=== PATIENT | female | born 2000 | race African-American/Black ===

== ENCOUNTER 2024-05-16 13:21 | Emergency (ER) | payer MEDICAID, SELFPAY ==
--- NOTE | ~2024-05-16 | XR_ITS ---
EXAMINATION: XR FINGER, RIGHT CLINICAL INFORMATION: right index lac COMPARISON: None available. TECHNIQUE: Oblique and lateral views second digit of the right PA view right hand. FINDINGS: No acute cortical disruption or gross malalignment. Edema pattern subcutaneous emphysema, second digit. No metallic or radiopaque foreign body. XR/XR finger RT min 2V IMPRESSION: No acute fracture or dislocation. No gross foreign body. Electronically signed by: Tulio Carranza MD 05/16/2024 03:54 PM EST
[2024-05-16 13:26] VITALS: BP 122/77; PULSE 81; O2SAT 100
--- NOTE | 2024-05-16 14:17 | ED.WOUNDLAC ---
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 Tetanus unknown. Denies numbness, tingling, injury to other area, anticoagulation use. Related Data Previous Rx's ?Medication ?Instructions ?Recorded cephalexin 500 mg capsule 500 mg PO QID 7 days #28 caps 05/16/24 hydrocodone 5 mg-acetaminophen 325 1 tab PO Q8H PRN pain, severe 3 05/16/24 mg tablet days #5 tabs Allergies Allergy/AdvReac Type Severity Reaction Status Date / Time No Known Allergies Allergy Verified 05/16/24 14:28 Review of Systems Review of Systems: Yes all other systems are reviewed and are negative Constitutional: Constitutional: Reports as per HPI [facility] Past Medical History Attestation statement: The following information was validated with the patient. Source: old records reviewed Social History Social History Advance Directives: No Advance Directives Information Provided: Yes Physical Exam Vital Signs: Vital Signs: Last Vital Signs Temp 98.5 F 05/16/24 14:23 Pulse 76 05/16/24 14:23 Resp 18 05/16/24 14:23 BP 120/82 05/16/24 14:23 Pulse Ox 98 05/16/24 14:23 O2 Del Method Room Air 05/16/24 14:23 BMI result Body Mass Index 25.7 Const: General: cooperative, healthy appearing and no acute distress Orientation/consciousness: patient oriented x3 Limitations: no limitations HEENT: Head: Yes normal to inspection and Yes atraumatic Ears: hearing grossly normal bilaterally General nose exam: Normal external nose present Face and sinus: Yes normal facial exam Eyes: General: appearance normal, both eyes and all related structures EOM: EOMs intact bilaterally Neck: Neck: Yes normal visual inspection and Yes no meningeal signs Resp: Effort & Inspection: normal respiratory effort and no respiratory distress Cardio: Rate: regular rate Skin: Other: Please refer to images above. Deep 3 cm laceration noted to proximal palmar aspect of right 2nd digit. Active bleeding. No visible tendon. Patient unable to flex finger Rashes: no rashes Neuro: General: patient oriented x3, tone normal and no meningeal signs Cranial nerves: Yes CN's II-XII intact bilaterally Gait exam (Neuro): Normal gait present Extrem: General: Yes normal to inspection Course Course Course Narrative: This is a Rapid Medical Examination (RME) performed by Josef Eric PA-C in triage. Full HPI, ROS, assessment and treatment plan per primary provider in the Main ED. 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 Bleeding controlled by EMS with a bulky bandage. on exam patient has a large, deep lac to the base of the right index finger on the palmar side w/ active bleeding. no numbness or tingling in the finger, just pain. unable to flex finger at all. Plan: XR finger, TDAP, lac repair Case discussed with orthopedic ONELIA Michaud > recommended wound closure, initiation of antibiotics, patient can be evaluated in their office tomorrow for potential tendon repair on with Dr. Ruggiero. This was discussed with patient with [facility] helper electrical. Results discussed with patient including worrisome signs and symptoms and strict return precautions, and when to return to the emergency department. They verbalized understanding and feel safe for discharge at this time. Medications Administered Discontinued Medications Generic Name Dose Route Start Last Admin Trade Name Freq PRN Reason Stop Dose Admin Diphtheria/Tetanus/Acell Pertussis 0.5 ml 05/16/24 14:24 05/16/24 16:12 Diphth,Pertus(Acell),Tet Adult 0.5 Ml Syringe IM 05/16/24 14:25 0.5 ml .ONCE ONE Administration Lidocaine HCl 5 ml 05/16/24 15:56 05/16/24 16:16 Lidocaine Hcl 1 % Mpf 5 Ml Vial INFILTRATI 05/16/24 15:57 5 ml ONCE ONE Administration Medical Decision Making Medical Decision Making [facility] Narrative: 24-year-old female, Swahilli speaking presents to the ED complaining of laceration to right index finger s/p cutting meat with a knife 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 On exam vital signs stable, NAD, nontoxic appearing, physical exam as noted above. Please refer to images. Concern for deep wound laceration with tendon rupture. Patient unable to flex finger. Lower suspicion for fracture or septic joint at this time Plan: X-ray ordered in triage, wound repair, orthopedic hand consult, update tetanus Please refer to course for remaining clinical decision making, interpretation of labs/imaging results, and discussions with consultants and/or family members. 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 External Record Review External record reviewed: Inpatient record, Office record, Outpatient record, Prior outpatient labs, Prior outpatient radiology, Primary care record and Outside ED record Tests considered The following testing was considered but not selected: As above Prescription Management I considered prescription management with: Pain Medication and Antibiotic Social Determinants Patient?s care significantly limited by Social Determinants of Health including: Other Social Determinant of Health Procedures Laceration Laceration 1: Site: hand Side (If applicable): right Size (cm): 3 Description: linear Depth: involves tendon Local Anesthetic: lidocaine 1% Amount of anesthesia used (mL): 7 Pre-repair: wound explored and irrigated extensively Skin layer closed with: nylon Size (cm): 4-0 Number of sutures: 7 Technique: simple, interrupted Discharge Plan Discharge Clinical Impression: Flexor tendon laceration of finger with open wound Patient Disposition: Home, Self-Care Instructions: Finger Laceration (ED), Tendon Laceration (ED) Additional Instructions: You have a deep laceration of your finger with flexor tendon rupture YOU NEED TO FOLLOW-UP IN THE ORTHOPEDIC OFFICE TOMORROW. CALL THE OFFICE Keflex as an antibiotic please take as prescribed Dysart as an opiate pain medication, take only when pain is severe for the next 3 days. In addition take Motrin If area becomes increasingly painful, numb, is soaking through/bleeding through dressing return to the ED immediately Prescriptions: New hydrocodone-acetaminophen 5-325 mg tablet 1 tab PO Q8H PRN (Reason: pain, severe) 3 Days Qty: 5 0RF Rx Instructions: Partial Fill upon patient request. cephalexin 500 mg capsule 500 mg PO QID 7 Days Qty: 28 0RF Referrals: [facility] [place] Orthopedic Surgeons [Provider Group] - 1 day Print Language: Swmacili
[2024-05-16 14:23] VITALS: BP 120/82; PULSE 76; RESP 18; TEMP 36.9; O2SAT 98; BMI 25.7
[2024-05-16] MEDS: Diphth,Pertus(ACell),Tet Adult 0.5 ML SYRINGE IM (16:12)
[2024-05-16] MEDS: Lidocaine HCl 1 % MPF 5 ML VIAL INFILTRATI ×2 (16:16→17:33)
[2024-05-16] MEDS: cephALEXin 500 MG CAPSULE PO (17:36)
[2024-05-16 17:46] VITALS: BP 120/82; PULSE 76; RESP 18; TEMP 36.9; O2SAT 98
== END 2024-05-16 17:54 | disposition home or self-care (01) ==
PROVIDERS: Emergency Provider Emergency Medicine
DX: S66.120A Laceration of flexor muscle, fascia and tendon of right index finger at wrist and hand level, initial encounter (principal); W26.0XXA Contact with knife, initial encounter; Y93.G1 Activity, food preparation and clean up; Y92.009 Unspecified place in unspecified non-institutional (private) residence as the place of occurrence of the external cause; Y99.9 Unspecified external cause status; Z23 Encounter for immunization
CPT/HCPCS: 12042; 73140; 90471; 90715; 99282; 99284; J2003

== ENCOUNTER → 2024-05-16 14:24 | Outpatient (BNV) | payer MEDICAID, SELFPAY | PROVIDERS: Visit Provider Radiology Diagnostic Radiology | DX: S61.210A Laceration without foreign body of right index finger without damage to nail, initial encounter (principal) | CPT/HCPCS: 73140 ==

== ENCOUNTER 2024-05-17 14:33 | Outpatient (AMB) | payer MEDICAID, SELFPAY ==
[2024-05-17 14:47] VITALS: BMI 25.7
--- NOTE | 2024-05-17 14:47 | MHC.OFFVIS ---
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 Patient reports that she was cutting meat with a knife and had accidentally cut her finger. She presented to [facility] ER that same day, sutures were applied. Currently she has mild pain, states feeling a tightness from her bandage. No numbness or tingling. She has not started her antibiotics that was prescribed by ER. 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 She states that she was cutting meat with a knife when she slipped and cut her finger. She was seen in the emergency department where the laceration was irrigated and there was closure with nylon. The area was dressed and she was referred to our office for ortho eval and potential surgical planning. She was prescribed antibiotics from the emergency department however she did not go to the pharmacy to pick these up yet. [facility] Social History (Updated 05/17/24 @ 14:50 by ANJEL Nicolas) Patient Tobacco Use Status: Never used Tobacco Current occupational status: unemployed Current occupation: right hand dominant Review of Systems Const All systems reviewed & are unremarkable except as noted in HPI and below Physical Exam Vital Signs: BMI result Body Mass Index 25.7 Const General: cooperative, healthy appearing, comfortable, no acute distress, well developed and alert Orientation/consciousness: patient oriented x3 HEENT Head: Yes normal to inspection, Yes normocephalic and Yes atraumatic Eyes General: appearance normal, both eyes and all related structures Neck Neck: Yes normal visual inspection and Yes no lymphadenopathy Resp Effort & Inspection: normal respiratory effort and able to speak in complete sentences Cardio Rate: regular rate Peripheral pulses: Peripheral pulses 2+ throughout GI Inspection: Yes normal to inspection Palpation (GI): Soft to palpation Skin General skin exam: no rashes or lesions noted Neuro General: patient oriented x3 Extrem Other: Right hand is normal to inspection she does have a laceration over the proximal aspect of the right index finger along the volar aspect of the finger. Radial and ulnar digital nerve intact. Full extension with no lag. She is unable to flex at the PIP. Cap refill brisk. Psych Appearance: grossly normal Mental Status: mental status grossly normal Assessment & Plan Assessment & Plan (1) Flexor tendon laceration of finger with open wound: Code(s): S56.129A - Laceration of flexor muscle, fascia and tendon of unspecified finger at forearm level, initial encounter; S61.209A - Unspecified open wound of unspecified finger without damage to nail, initial encounter Category: Medical Plan: I reviewed the case with Dr. Ruggiero and this is something that would require surgical intervention to repair. I explained the extent of the injury and options to the patient which includes repair of the flexor tendon. I did explain to her that this takes anywhere from 6-12 weeks to fully recover from as there needs to be a period of immobilization and then some potential physical therapy. I discussed with her the risks, benefits and alternatives to the procedure. Risks including, but not limited to infection, re-rupture of the tendon, stiffness. She does understand all this and would like to proceed with right index finger flexor tendon repair with possible microscopic digital nerve repair Dr. Ruggiero. She will be booked accordingly Medications: New hydrocodone-acetaminophen 5-325 mg Partial Fill upon patient request. 1 tab PO Q6H PRN 28 tabs 0RF pain 7 days Coding Level of Care Code New Pt Level 4 (47514) Complex EM visit Add On G2211 Diagnoses Flexor tendon laceration of finger with open wound S56.129A; S61.209A
== END 2024-05-17 15:33 | disposition home or self-care (01) ==
PROVIDERS: Visit Provider Physician Assistant
DX: S56.129A Laceration of flexor muscle, fascia and tendon of unspecified finger at forearm level, initial encounter (principal); S61.209A Unspecified open wound of unspecified finger without damage to nail, initial encounter
CPT/HCPCS: 99204

== ENCOUNTER → 2024-05-17 14:33 | Outpatient (BNVA) | payer MEDICAID, SELFPAY | PROVIDERS: Visit Provider Physician Assistant | DX: S56.121A Laceration of flexor muscle, fascia and tendon of right index finger at forearm level, initial encounter (principal); S61.210A Laceration without foreign body of right index finger without damage to nail, initial encounter; W26.0XXA Contact with knife, initial encounter; Y93.G3 Activity, cooking and baking; Y92.9 Unspecified place or not applicable; Y99.9 Unspecified external cause status | CPT/HCPCS: 99212 ==

== ENCOUNTER 2024-05-18 09:12 | Day surgery (SDC) | payer MEDICAID, SELFPAY ==
[2024-05-18] VITALS (9 sets, daily range): BP systolic 95–120; BP diastolic 55–78; PULSE 83–117; RESP 15–18; TEMP 36.1–37.1; O2SAT 96–100; BMI 27.6
[2024-05-18 09:35] LABS: UPreg QC Valid YES
[2024-05-18 09:37] LABS: Urine Pregnancy NEGATIVE (NEGATIVE)
--- NOTE | 2024-05-18 09:46 | P.OP_ITS ---
Operative Note Operative Note Date of Service: 05/18/24 Narrative: Operative Note Narrative: Preop diagnosis: 1. Right index finger zone 2 flexor digitorum superficialis laceration 2. Right index finger zone 2 flexor digitorum profundus laceration Postop diagnosis: 1. Right index finger zone 2 flexor digitorum superficialis laceration 2. Right index finger zone 2 flexor digitorum profundus laceration? 3. Right index finger radial digital nerve laceration Procedure: 1. Right index finger flexor digitorum superficialis repair, in zone 2 2. Right index finger flexor digitorum profundus repair, in zone 2 3. Right index finger radial digital nerve laceration using loupe magnification Surgeon: Corinne Ruggiero MD [employer] General Supervisor: Alfie ROUSSEAU Anesthesia: General anesthesia plus regional block Findings: Right index finger laceration of the FDP and FDS tendons within zone 2, and within the A2 olive. She also had a laceration of the radial neurovascular bundle at the same level. The ulnar neurovascular bundle appeared to be intact. Implants: None Tourniquet time: 115 minutes EBL: 5.0 ml Specimen: None Drains: None Complications: None Disposition: Brought to the recovery room in stable condition Plan: She was placed in a dorsal blocking splint and instructed not to remove it. Follow-up with our OT hand therapists for a custom dorsal blocking splint and to begin the flexor tendon protocol. Follow-up in 10-14 days for wound check and suture removal Indications: The patient is 24 years old with a laceration over the volar aspect of the right index finger proximal phalanx, and zone 2 flexor tendon lacerations. She denied having any numbness in the radial digital nerve or ulnar digital nerve distribution of the finger when seen in clinic.. . The risks and benefits of operative treatment, including but not limited to risk of damage to blood vessels, nerves, tendons, infection, recurrence, persistent pain or numbness, incomplete resolution of preoperative symptoms, or need for further surgery were discussed with the patient and they wished to proceed with surgery. Procedure: Once consent was obtained patient was brought back to the operating suite and placed in the operating table in a supine position. . Perioperative antibiotics and anesthesia was administered by the anesthesia team. A tourniquet was applied to the proximal aspect of the right upper extremity and the limb was prepped and draped in a standard surgical fashion. The limb was elevated exsanguinated with Esmarch bandage and the tourniquet inflated to 250 mm of mercury for a total tourniquet time of 115 minutes. A Ramiro is a type incision was made over the volar aspect of the patient's right index finger, incorporating the laceration. The incision was made through the skin to the subcutaneous tissues using a 15. Blade. Careful dissection was made down to the level of the flexor tendon sheath with care being taken to protect the neurovascular structures. The laceration through the flexor tendon sheath was found through the A2 olive. She lacerated both the FDS and FDP tendons within the A2 olive and they were retracted both proximally and distally. The ulnar neurovascular bundle appeared to be intact. The laceration clearly transected the radial neurovascular bundle. A neurolysis was performed mobilizing both the proximal and distal aspect of the lacerated radial digital nerve. The wound was washed out and debrided of any nonviable tissue. The FDP and FDS tendons were brought distally to the level of the laceration at the A2 olive. I vented the distal 5 mm of the A2 olive. The distal aspect of the FDS and FDP tendons were then brought proximally. I then repaired the radial slip of the FDS tendon using some 3-0 Ethibond suture. I then repaired the ulnar slip of the FDS tendon using some 3-0 Ethibond suture. I then repaired the FDP tendon using 3-0 Ethibond in a 4 core suture technique. I was somewhat concerned that because of the bulk we might have difficult passing this through the A2 olive. I therefore performed a tenotomy of the ulnar slip of the FDS tendon. I was then able to draw the repaired tendons within the A2 olive without difficulty by applying traction at the A1 olive level. My attention was then turned to the radial digital nerve. I placed a small piece of Esmarch behind it as a background. I then repaired the radial digital nerve using loupe magnification and some 7 0 Prolene suture. At this point the tourniquet was deflated and hemostasis obtained with a brief period of local pressure and bipolar electrocautery. The wound was copiously irrigated with normal saline. The the skin edges were reapproximated with 5-0 nylon suture. The wound was infiltrated with some 0.5% plain Marcaine for postop pain control and a sterile dressing was applied. A dorsal blocking splint incorporating all 4 fingers was then applied holding the MCP and PIP joints in a flexed position. The patient appears to have tolerated the procedure well and with no complications. All digits were well vascularized conclusion of the case.
[2024-05-18] MEDS: Lactated Ringers 1,000 ML 50 ML IVCONT (10:06)
--- NOTE | 2024-05-18 11:31 | HO.ANESPROP2 ---
HPI - Anesthesia Eval Consult details Narrative: flexor tendon repair PMFSH Family History Family history of problems with anesthesia: No Surgical History History of Problems with Anesthesia: No Social History Social History Patient Tobacco Use Status: Never used Tobacco Use of substances other than those prescribed or required for medical reasons: No Are you DNR?: No Advance Directives: No Advance Directives Information Provided: Yes Recently lost weight without trying: No Current occupational status: unemployed Current occupation: right hand dominant Meds Allergies Allergy/AdvReac Type Severity Reaction Status Date / Time No Known Allergies Allergy Verified 05/17/24 14:48 Active Medications: Current Medications Lactated Ringer's (Lr) 1,000 mls @ 50 mls/hr IVCONT .Q20H FLORY Last Admin: 05/18/24 10:06 Dose: 50 mls/hr Exam Height,Weight and Vital Signs: Height 5 ft 3 in Weight 70.76 kg Last Vital Signs Temp 98.8 F 05/18/24 10:05 Pulse 83 05/18/24 10:05 Resp 15 05/18/24 10:05 BP 115/78 05/18/24 10:05 Pulse Ox 98 05/18/24 10:05 O2 Del Method Room Air 05/18/24 10:05 Pertinent Lab Results Pertinent Lab Results: Laboratory Tests 05/18/24 09:25 Urine Test NEGATIVE Airway Mallampati Class: II TM Dist: >3cm Neck ROM: Full Heart: rrr Lungs: cta Assessment and Plan Assessment Anesthesia Assessment: Anesthesia Plan Discussed Final Anesthetic Review Family History of Problems with Anesthesia: No History of Problems with Anesthesia: No NPO: Yes Final Preanesthetic Review: No Changes in Pt Med Stat, Meds/Allgs Chart Reviewed, Consent Obtained/Reviewed and Anes Risks/Benef Reviewed Patient Risk: Low Procedure Risk: Low Anesthetic Plan Anesthetic Plan: GA Disposition: Standard PACU
--- NOTE | 2024-05-18 12:21 | MHC.SHP ---
Pre-Procedural Eval Section A - 24 Hr Update-Section A only Date of Service: 05/18/24 The patient is an INPATIENT: No Changes since office visit: No Cold of Flu in the past 2 weeks, No New Medical Problems, No Changes in Medication and No Patient answered all questions The patient has been examined within 24 hours of the surgical procedure. The History & Physical has been completed within 30 days and I have reviewed it.: Yes Section B - Complete if H&P > 30 days Chief Complaint: Laceration of flexor muscle, fascia and tendon Allergies: Allergies Allergy/AdvReac Type Severity Reaction Status Date / Time No Known Allergies Allergy Verified 05/17/24 14:48 Plan I have reviewed the history and physical and performed a pertinent physical examination on my patient. No changes have occurred unless specified. Time Spent With Patient Time: Total time managing care of this patient today ____ minutes.
[2024-05-18] MEDS: fentaNYL citrate/PF 100 MCG/2 ML VIAL 25 MCG IVPUSH (15:28)
== END 2024-05-18 16:45 | disposition home or self-care (01) ==
PROVIDERS: Anesthesiology; Visit Provider Orthopaedic Surgery
PROC: (CPT 26356; principal; 2024-05-18 10:30)
DX: S56.121A Laceration of flexor muscle, fascia and tendon of right index finger at forearm level, initial encounter (principal); S61.210A Laceration without foreign body of right index finger without damage to nail, initial encounter; W26.0XXA Contact with knife, initial encounter; Y93.G1 Activity, food preparation and clean up; Y92.9 Unspecified place or not applicable; Z79.899 Other long term (current) drug therapy; Z56.0 Unemployment, unspecified
CPT/HCPCS: 26356; 64831; 81025; A4649; J0131; J0690; J1100; J2003; J2405; J2704; J3010

== ENCOUNTER → 2024-05-18 09:12 | Outpatient (BNV) | payer MEDICAID, SELFPAY | PROVIDERS: Visit Provider Orthopaedic Surgery | DX: S66.120A Laceration of flexor muscle, fascia and tendon of right index finger at wrist and hand level, initial encounter (principal) | CPT/HCPCS: 26356; 64702; 64831 ==

== ENCOUNTER 2024-05-31 09:10 | Outpatient (AMB) | payer MEDICAID, SELFPAY ==
--- NOTE | 2024-05-31 09:28 | A.OFFVIS_ITS ---
Intake Visit Reasons: PO RT IF flexor tendon repair 05/18/24 AR Intake Note: Tracy a 24 year old - hand dominant female who presents today post operatively s/p right index finger flexor tendon repair performed 05/18/[address] Ruggiero. Patient reports she does have a burning sensation in her finger that comes and goes. Pt denies numbness, tingling, finger locking Patient is currently taking tylenol and ibuprofen for pain with relief. Tourist Information Assistant Required: Yes Tourist Information Assistant Language: Swahili Tourist Information Assistant Services: Tourist Information Assistant Present Tourist Information Assistant Name: Gabriel ([id number]) Allergies No Known Allergies Allergy (Verified 05/31/24 09:28) HPI HPI PO RT IF flexor tendon repair 05/18/24 AR: Details: Tracy is a 24 year old right hand dominant Swahili speaking woman who presents S/P right index finger flexor tendon repair, DOS: 05/18/24. She cut her finger with a kitchen knife on 05/16/24, and was seen in the ED the same day. Translation service used today. She says she is doing well, she complains of an intermittent burning sensation in her finger. She says this is tolerable and managed with Tylenol. She denies any numbness or tingling. She has yet to be seen by OT hand therapy, and her first scheduled appointment is on 06/16/24. [facility] Social History Patient Tobacco Use Status: Never used Tobacco Current occupational status: unemployed Current occupation: right hand dominant Review of Systems Const All systems reviewed & are unremarkable except as noted in HPI and below Physical Exam Const General: no acute distress and alert Orientation/consciousness: patient oriented x3 Neuro General: patient oriented x3 Extrem Other: The patient was alert oriented and in no acute distress She speaks Swahili and we used a Swahili quarrying manager. She was really rather reticent during the appointment. The incision is healing well with no erythema drainage or evidence of infection. Sutures removed and Steri-Strips applied She was still in her operative dressing, as she had not yet seen OT hand therapy. The index finger was held in a slightly bent position, consistent with intact repair of the flexor tendons Sensation was intact and normal to the ulnar digital nerve distribution. At 1st she said sensation was normal to the radial digital nerve distribution but as I pressed her, she said that it was almost normal but a little sleepy Cap refill brisk. Psych Appearance: grossly normal Affect: normal affect Attitude: cooperative Assessment & Plan Assessment & Plan (1) Laceration of flexor muscle, fascia and tendon of right index finger at wrist and hand level, subsequent encounter: Code(s): S66.120D - Laceration of flexor muscle, fascia and tendon of right index finger at wrist and hand level, subsequent encounter Category: Medical Plan Assessment & Plan: 1. Right index finger flexor tendon laceration, S/P A) Flexor digitorum superficialis repair in zone 2 B) Flexor digitorum profundus repair in zone 2 2. Right index finger digital nerve laceration, S/P repair using Loupe magnification DOI: 05/16/24 DOS: 05/18/24 The patient appears to be doing well post-operatively I educated her about the post-operative course I ordered OT hand therapy to be placed in a custom dorsal blocking splint, to be worn for the next 4 weeks. She will also begin flexor tendon protocol. She was scheduled to be seen by OT on 06/16/24, but I called & spoke to OT and arranged an appointment for her for later today I explained the signs and symptoms of infection, if the patient develops any new or worsening erythema, drainage, pain, or warmth they should contact the clinic or attend the ED. I discussed activity modifications and the postop course with her at length. She does understand that she needs to stay in her dorsal blocking splint except for when she is directed otherwise by OT hand therapy. I explained the importance of not doing too much, and of the importance of also doing the exercises so that she has enough motion to allow gliding of the tendon repairs. She will follow flexor tendon protocol for ROM exercises at home, as instructed by OT hand therapy I discussed the importance of following the directions of the OT hand therapist and doing her exercises as directed. She will follow up in 4 weeks for a wound & ROM check I explained if she has any concerns she should give us a call. I also gave her my card. Scribed for Corinne Ruggiero MD by Wayne Nicole, medical technicians, on 05/31/24 at 9:55 AM, EST. Coding Level of Care Code Global (18950) Diagnoses Laceration of flexor muscle, fascia and tendon of right index finger at wrist and hand level, subsequent encounter S66.120D
== END 2024-05-31 10:31 | disposition home or self-care (01) ==
PROVIDERS: Visit Provider Orthopaedic Surgery
DX: S66.120D Laceration of flexor muscle, fascia and tendon of right index finger at wrist and hand level, subsequent encounter (principal)
CPT/HCPCS: 99024

== ENCOUNTER → 2024-05-31 09:10 | Outpatient (BNVA) | payer MEDICAID, SELFPAY | PROVIDERS: Visit Provider Orthopaedic Surgery | DX: S66.120D Laceration of flexor muscle, fascia and tendon of right index finger at wrist and hand level, subsequent encounter (principal) | CPT/HCPCS: 99212 ==

== ENCOUNTER 2024-06-23 13:26 | Outpatient (RCR) | payer MEDICAID, SELFPAY ==
--- NOTE | 2024-05-31 15:36 | MHC.OT.EP ---
[address] [phone] Occupational Therapy Plan of Care Patient Name: Tracy Snow Date of Evaluation: 05/31/24 Diagnosis: R IF zone 2 flexor tendon repair w/ digital nerve involvement (repair) Pain Location: R IF Pain Score: 5 Pain Scale Used: Numeric (0 - 10) Aggravating Factors: Alleviating Factors: Assessment: Pt is a R hand dominant female who injured her hand on 05/16 while using a knife to cut food. she reports going to the ED at [facility] and then being referred to Dr. Ruggiero to be evaluated for a zone 2 flexor tendon laceration. she had surgery on 05/18 and the digital nerve and tendon were repaired. Pt had a portion of her stitches removed 05/31, and was then referred to skilled OT therapy for fabrication of a DBS and to begin GENTLE ROM exercises. She presents today post MD visit w/ mild swelling and bandaged on the volar side of her hand/ digits due to seeing the MD just prior to todays IE. Measurements were not taken due to time constraints and contraindications of protocol PT'S INSURANCE WOULD LIKE HER TO SEE HER PC WHICH HAS NOT BEEN ESTABLISHED BEFORE ATTENDING OT; THE FRONT OFFICE STAFF IS WORKING W/ HER INSURANCE,PROVIDERS, AND THE PATIENT TO MAKE SURE PATIENT GETS THE ADEQUATE CARE NEEDED DUE TO THE NATURE OF HER INJURY Frequency and Duration: The patient will be seen 2 xs a week for 8 weeks Short Term Goals: Pt will [be compliant w/ DBS wear/care Pt will be compliant w/ her HEP Pt will increase will be able to use her R hand to hold her cell phone w/out difficulty (4 weeks post IE) Check Services Clerk Goals: Pt will be able to use her R hand to lift 8 lbs w/ out difficulty Pt will be able to make a composite fist Pt will report using her R hand to write w/out difficulty Treatment Plan: Therapeutic Exercise Therapeutic Activity Home Exercise Program Splinting Neuro Re-ed Patient Education Desensitization/Sensory Re-ed Edema Control ADL Training Ultrasound NMES Iontophoresis Paraffin Fluidotherapy MHP Cold Packs Joint Mobilization Soft Tissue Mobilization Kinesiotaping Other (see comments) Electronically Signed By: Lyly Millard OTR/L Please Sign and return to therapist. Thank you once again for your referral.
== END 2024-07-03 11:23 | disposition home or self-care (01) ==
LOC: HO.OT 13:26
PROVIDERS: PCP Nurse Practitioner Family; Visit Provider Orthopaedic Surgery
DX: S66.120A Laceration of flexor muscle, fascia and tendon of right index finger at wrist and hand level, initial encounter (principal)
CPT/HCPCS: 29125; 97110; 97140; 97166; 97535; 97760

== ENCOUNTER 2024-06-27 12:29 | Outpatient (AMB) | payer MEDICAID, SELFPAY ==
--- NOTE | 2024-06-27 12:52 | MHC.OFFVIS ---
Vital Signs 06/27/24 12:53 Height 5 ft 3 in Weight 156 lb BMI 27.6 Intake Visit Reasons: PO RT IF flexor tendon repair 05/18/24 AR Intake Note: Tracy 24 yr old right hand dominant female presents today for her PO right index finger flexor tendon repair 05/18/24 AR. Patient reports pain on her index finger and limited ROM. Patient shares she continues to go to OT and thinks this is helping her. Denies numbness, tingling, or finger locking. Drum Dyeing Machine Operator Required: Yes Drum Dyeing Machine Operator Language: Henok Drum Dyeing Machine Operator Name: [id number] Enmanuel Allergies No Known Allergies Allergy (Verified 06/27/24 12:53) HPI HPI PO RT IF flexor tendon repair 05/18/24 AR: Details: The patient is a 24-year-old [id number] woman who speaks why Rehan and some Greenlandic. She is status post a right index finger flexor tendon repair, FDP and FDS within zone 2. She is also status post repair of her radial digital nerve. Date of surgery 05/18/2024. She cut her finger with a kitchen knife on 05/16/2024. She reports that she is doing well and has been attending occupational therapy. She does not have her dorsal blocking splint today and says that OT discontinued it. [facility] Social History Patient Tobacco Use Status: Never used Tobacco Current occupational status: unemployed Current occupation: right hand dominant Physical Exam Vital Signs: BMI result Body Mass Index 27.6 Extrem Other: The patient was alert oriented and in no acute distress. She was not wearing her dorsal blocking splint, and said that OT discontinued it. She is now 6 weeks post surgery. Her surgical incisions and laceration are all well healed with no erythema drainage or evidence of infection. She has normal sensation in the ulnar digital nerve of the index finger, and says that the sensation to the radial digital nerve area is not normal when compared with the other digits. She has good active flexion at the MCP joint. She is able to demonstrate some active flexion at the D IP joint, and a small amount of active flexion at the PIP joint. She does have a bit of a flexion contracture at the PIP joint and the D IP joint. All in all, not much active motion at this time. Assessment & Plan Assessment & Plan (1) Laceration of flexor muscle, fascia and tendon of right index finger at wrist and hand level, subsequent encounter: Code(s): S66.120D - Laceration of flexor muscle, fascia and tendon of right index finger at wrist and hand level, subsequent encounter Category: Medical Plan Assessment & Plan: 1. Right index finger flexor tendon laceration, S/P A) Flexor digitorum superficialis repair in zone 2 B) Flexor digitorum profundus repair in zone 2 2. Right index finger digital nerve laceration, S/P repair using Loupe magnification DOI: 05/16/24 DOS: 05/18/24 The patient appears to be doing well post-operatively I educated her about the post-operative course I encouraged her to gently massage her incision sites, and also encouraged her to work well with the hand therapists and do the exercises that they ask. I am concerned that she has got some stiffness and not much active motion at this time We will see her back in 4 weeks to see how she is doing and for a [id number] check. Coding Level of Care Code Global (27336) Diagnoses Laceration of flexor muscle, fascia and tendon of right index finger at wrist and hand level, subsequent encounter S66.120D
[2024-06-27 12:53] VITALS: BMI 27.6
== END 2024-06-27 13:33 | disposition home or self-care (01) ==
LOC: HO.HOS 12:29
PROVIDERS: Visit Provider Orthopaedic Surgery
DX: S66.120D Laceration of flexor muscle, fascia and tendon of right index finger at wrist and hand level, subsequent encounter (principal)
CPT/HCPCS: 99024

== ENCOUNTER → 2024-06-27 12:29 | Outpatient (BNVA) | payer MEDICAID, SELFPAY | PROVIDERS: Visit Provider Orthopaedic Surgery | DX: S66.120D Laceration of flexor muscle, fascia and tendon of right index finger at wrist and hand level, subsequent encounter (principal) | CPT/HCPCS: 99212 ==